=== PATIENT | female | born 1975 | race Caucasian/White ===

== ENCOUNTER 2021-09-13 08:51 | Inpatient (IN) | payer OTHER ==
[~2021-09-13] VITALS: Ht 162.6 cm; Wt 68.0 kg
[2021-09-13 10:20] LABS: HEMOGLOBIN 15.7 gm/dl (12.3-15.3); RED BLOOD COUNT 4.8 M/UL (4.00-5.10); WHITE BLOOD COUNT 6.7 K/UL (4.5-11.0)
[2021-09-13 11:01] LABS: BUN/CREATININE RATIO 8 (0-10)
[2021-09-13 15:39] LABS: BUN/CREATININE RATIO 11 (0-10)
[2021-09-14 07:44] LABS: WHITE BLOOD COUNT 7.2 K/UL (4.5-11.0)
[2021-09-14 07:48] LABS: HEMOGLOBIN 12.8 gm/dl (12.3-15.3); RED BLOOD COUNT 4.16 M/UL (4.00-5.10)
[2021-09-14 08:04] LABS: BUN/CREATININE RATIO 9 (0-10)
[2021-09-15 06:46] LABS: HEMOGLOBIN 12.5 gm/dl (12.3-15.3); RED BLOOD COUNT 4.06 M/UL (4.00-5.10); WHITE BLOOD COUNT 7.6 K/UL (4.5-11.0)
[2021-09-15 07:16] LABS: BUN/CREATININE RATIO 6 (0-10)
[2021-09-16 07:15] LABS: HEMOGLOBIN 12.2 gm/dl (12.3-15.3); RED BLOOD COUNT 3.99 M/UL (4.00-5.10); WHITE BLOOD COUNT 6.8 K/UL (4.5-11.0)
[2021-09-16 08:15] LABS: BUN/CREATININE RATIO 13 (0-10)
[2021-09-16] MEDS ORDERED: THERAGRAN M TAB1 EA PO (09:27)
[2021-09-16] MEDS ORDERED: PROVENTIL HFA6.7 GM INH (09:27)
[2021-09-16] MEDS ORDERED: DECADRON6 MG PO (09:27)
[2021-09-16] MEDS ORDERED: CEFUROXIME500 MG PO (09:36)
--- NOTE | 2021-09-16 09:58 | NUR ---
RM AIR O2 SAT 85. O2 REAPPLIED AND O2 SAT 97.
--- NOTE | 2021-09-16 10:18 | NUR ---
NEW ORDER NOTED FOR POTASSIUM 20MEQ PO. DR. CHEW NOTIFIED TO CLARIFY ORDER R/T PATIENT'S POTASSIUM 3.5. ORDER CORRECT. POTASSIUM ADMINISTERED PO AT THIS TIME.
== END 2021-09-16 14:34 | disposition home or self-care (01) | DRG 177 ==
LOC: ER1 08:51 → CDU 11:46 → M/S 21:50
PROVIDERS: Physician Assistant; ADMIT Internal Medicine Infectious Disease
PROC: 8E0ZXY6 Isolation (ICD-10-PCS; principal; 2021-09-13)
PROC: 3E0333Z Introduction of Anti-inflammatory into Peripheral Vein, Percutaneous Approach (ICD-10-PCS; 2021-09-13)
DX: U07.1 COVID-19 (principal); J12.82 Pneumonia due to coronavirus disease 2019; J96.01 Acute respiratory failure with hypoxia; E87.6 Hypokalemia; N30.90 Cystitis, unspecified without hematuria; B96.20 Unspecified Escherichia coli [E. coli] as the cause of diseases classified elsewhere; R94.5 Abnormal results of liver function studies; Z79.899 Other long term (current) drug therapy
CPT/HCPCS: 0240U; 36415; 36600; 71045; 80048; 80053; 81001; 82550; 82553; 82803; 83605; 83735; 83874; 84484; 84703; 85025; 85027; 85379; 86140; 87040; 87077; 87086; 87186; 93005; 94640; 94664; 94760; 99285; J0696; J1100; J1650; J3480